=== PATIENT | male | born 1960 | race Caucasian/White ===

== ENCOUNTER 2022-02-26 10:53 | Inpatient (IN) | payer OTHER, SELFPAY ==
[2022-02-26] VITALS (23 sets, daily range): BP systolic 85–142; BP diastolic 49–96; PULSE 86–108; RESP 13–29; TEMP 36.6–37.2; O2SAT 94–100
--- NOTE | 2022-02-26 11:00 | RT.EKG_ITS ---
APPROVED REPORT Exam: Resting ECG Reason for Exam: anemia Patient Location: E HR:90 bpm ECG Measurements Heart Rate 90 AXIS SD 115 P 96 QRSd 79 QRS 43 QT 365 T 61 QTc 448 Conclusion Sinus rhythm...normal P axis, V-rate 60- 99
[2022-02-26 11:42] LABS: INR 1.1 (0.9-1.1); PTT Activated 23.9 sec (21.0-27.5); Prothrombin Time 10.6 sec (9.3-11.0)
--- NOTE | 2022-02-26 12:08 | ED.GENADUL_ITS ---
Discharge Plan Disposition Patient Disposition: [facility] INPATIENT Condition: Stable Discharge Details Chief Complaint: GenMedical Clinical Impression: Anemia, BRBPR (bright red blood per rectum) Admit Date/Time: 02/26/22 12:51 Admit Provider: Chan Espino Attending Provider: Chan Espino Primary Care Provider: Key Jerome ED Provider: Marilee Murphy Discharge Instructions Activity:: Activity as Tolerated Equipment/Supplies:: No Equipment Needed Diet:: soft diet today Discharge Orders Discharge Orders: Discharge Order (Routine); Ordered 02/27/22 Ordered By: Anayeli Goncalves Discharge Data Discharge Date/Time-TO BE ENTERED AT DEPARTURE: 02/26/22 13:39 Medical Decision Making Patient is a pleasant 61 year old male presenting today, accompanied by brother, with c/c of anemia. Patient has lung cancer, being treated by [facility] [place]ology team. He was here for routine blood work today as an outpatient prior to having his second dose of chemotherapy, last was completed on February 06. His hemoglobin was found to be 5.6. Patient reports that he had low hemoglobin historically but is never required a transfusion and that his hemoglobin was admitted for him to have his last chemotherapy without issue. Typically, patient received care as part of hospital or [facility]. He states that 2 days ago he had some bright red blood per rectum but describes the being outside of the stool and more anatomical on the paper. Reports he has had anal fissures historically and associated with this. He has not had any further bleeding since then. He denies denies any other bright red blood per rectum, melena, hematochezia, hematemesis, hematuria. Patient is not anticoagulated. He denies any fevers or chills. Denies any chest pain. States he has been having shortness of breath but states that this is been constant since his last dose of chemotherapy and is fine by exertion. No change in this. States that had has not had this lab abnormality he would not have sought care emergently today. On exam, patient appears generally unwell. He appears fatigued he is quite pale. Conjunctiva white. He has no petechial rash. No obvious bruising. No abnormalities in the oropharynx. Lungs are clear, normal cardiac exam. Abdomen is benign. He does have a positive guaiac test but no bright red blood per rectum, fissures or external evidence of bleeding. Labs from this morning further reviewed. Patient's WBC within normal range, normal ANC. Hemoglobin 5.6 with a hemoglobin of 15.8. MCV 106. Chemistry significant for creatinine of 1.4, I do not have a previous for patient comparison. Magnesium is low at 1.4, patient reports that he is often hypomagnesemic. Albumin is also slightly low at 3.0. We will replace the magnesium. Coags were added on by myself and within normal limits. Review of [facility] records show the patient on a 3-week chemotherapy regime including carboplatin and etoposide. This could be contributing to patient's significantly low anemia in conjunction with his GI bleed. 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 Patient I discussed risk/benefits and potential reaction of transfusion. Patient voiced understanding and agrees to have is completing. Blood transfusion checklists and consent was obtained. Will transfuse patient with 2 units of PRBCs. Patient's largest concern is staying on track with his chemotherapeutic regimen, he was scheduled to have chemotherapy this morning. Spoke with Dr. Correa with oncology. He was initially >10 for Hgb. He advised that his last colonocsopy showed some polyps 2-3years ago but that his more recent PET scan was questionable in the colon. Recommends admission and colonoscopy. Consulted with general surgery who agrees to admission following recommendations as outlined above. [facility] General Date/Time Provider Initiated Documentation: 02/26/22 11:01 . Limitations to Documentation: no limitations . Information obtained by: patient, family (brother) and RN notes reviewed . History of Present Illness 61 year old M presents to the emergency department with the chief complaint of anemic, BRBPR, Quality is described as other (pt denies any pain, reports fatigue, exertional SOB), Patient started experiencing this hour(s) (received recommendation to come to ED after lab draw in prep for treatment this AM) and it has been now resolved (had BRBPR 2 days ago, none since then, normal BM). No relieving factors improve symptom(s), Movement worsens symptoms (exertional fatigue, SOB) . Patient notes malaise and shortness of breath (reports this has been present since last chemo treatment); denies chest pain, cough, diaphoresis, fever/chills, headaches, nausea/vomiting, rash and syncope. Patient did receive the following treatments prior to arrival, none Related Data Home Medications Medication Instructions Recorded Confirmed albuterol sulfate 90 mcg/actuation 2 inh inhalation PRN PRN 02/26/22 03/01/22 aerosol inhaler atorvastatin 10 mg tablet 1 tab PO DAILY 02/26/22 03/01/22 escitalopram oxalate 10 mg tablet 10 mg PO DAILY 02/26/22 03/01/22 folic acid 1 mg tablet 1 tab PO DAILY 02/26/22 03/01/22 metoprolol succinate 25 mg 25 mg PO DAILY 02/26/22 03/01/22 tablet,extended release 24 hr prochlorperazine maleate 10 mg 1 tab PO Q60 MIN PRN PRN 02/26/22 03/01/22 tablet (Compazine) valsartan 80 mg tablet 1 tab PO DAILY 02/26/22 03/01/22 vitamin B complex 1 cap PO DAILY 02/26/22 03/01/22 pantoprazole 40 mg tablet,delayed 40 mg PO BID 03/01/22 release Allergies Allergy/AdvReac Type Severity Reaction Status Date / Time strawberry Allergy Intermediate Hives Unverified 03/01/22 11:17 General Stated Complaint: GenMedical TIMOTHY: 3 Review of Systems Constitutional Constitutional: Reports as per HPI, Denies chills, Denies fever(s) and Denies headache(s) Eyes Eyes: Denies change in vision ENT Ears, Nose, Mouth, and Throat: Denies dizziness and Denies headache(s) Cardiovascular Cardiovascular: Reports as per HPI Respiratory Respiratory: Reports as per HPI, Denies chest congestion, Denies cough, Denies pain on inspiration and Denies pain with cough Gastrointestinal Gastrointestinal: Reports as per HPI, Denies abdominal pain, Denies diarrhea, Denies nausea and Denies vomiting Genitourinary Genitourinary: Denies system reviewed and no additional complaints, except as documented (denies change in urinary habits) Musculoskeletal Musculoskeletal: Reports as per HPI and Denies back pain Integumentary/Breasts Skin/Breast: Reports as per HPI and Denies rash Neurologic Neurologic: Reports as per HPI, Denies dizziness and Denies headache(s) PFSH All Active Problems (Updated 03/12/22 @ 09:54 by FREDO Gray) BRBPR (bright red blood per rectum) (Acute) Tubular adenoma of colon (Acute) Gastritis (Acute) Small cell lung cancer (Acute) COPD (chronic obstructive pulmonary disease) (Chronic) Mitral regurgitation (Chronic) Anemia (Chronic) Medical History (Updated 03/12/22 @ 09:54 by FREDO Gray) Cholecystitis Diverticulosis Hyperlipemia Surgical History (Updated 03/06/22 @ 13:15 by Penelope Bridges RN) History of colonoscopy (~02/2022) Hx of cardiac catheterization S/P cr S/P colon resection Social History Smoking/Tobacco Use Status: Current every day Tobacco Type: cigars Smoking risk assessment performed?: Yes Drug use: Occasionally Substance use type: marijuana Do you feel safe at home: Yes Do you feel safe in your relationship?: Yes Exam Const General: cooperative, comfortable, no acute distress, well developed, frail appearing and ill appearing acutely (pale) Nutritional Appearance: average body habitus Orientation: alert, awake and oriented x3 HENMT Head: normal to inspection Eyes General: appearance normal, both eyes and all related structures (pale conjunctiva) Neck Neck: no lymphadenopathy and no meningeal signs Chest Chest: normal inspection of the chest, normal palpation of entire chest wall and no crepitus Resp Effort & Inspection: normal respiratory effort, able to speak in complete sentences and no respiratory distress Auscultation: clear to auscultation bilaterally, no rales, no rhonchi and no wheezes Cardio Rate: regular rate Rhythm: regular rhythm Heart Sounds: S1 normal and S2 normal GI Inspection: normal to inspection, no edema and non-distended Palpation: soft, not firm, no guarding, not rigid and nontender Auscultation: normal bowel sounds Rectal Exam: visual inspection normal, normal sphincter tone, prostate normal, heme positive stool and No hemorrhoids Back/Spine/Pelvis Back: no CVA tenderness Thoracic/Lumbar Spine: thoracic and lumbar spine normal to inspection Skin General skin exam: no rashes or lesions noted Trauma: no lacerations or abrasions Neuro General: patient alert, patient awake and patient oriented x3 Cognition: normal cognition Speech: speech normal Gait: normal gait Extrem General: normal to inspection, capillary refill normal, no pedal edema, no calf tenderness and normal gait Psych Appearance: grossly normal and well kempt Mental Status: mental status grossly normal Speech and Movement: speech and movement normal Course Vital Signs Vital signs: Vital Signs Temperature 36.7 C 02/26/22 11:03 Pulse 90 02/26/22 11:03 Respiratory Rate 15 02/26/22 11:03 Blood Pressure 125/52 L 02/26/22 11:03 Pulse Oximetry 100 02/26/22 11:03 Temperature 36.7 C 02/26/22 11:03 Pulse 98 H 02/26/22 12:01 Pulse 106 H 02/26/22 12:01 Respiratory Rate 23 02/26/22 12:01 Respiratory Effort 02/26/22 11:10 Respiratory Depth Normal 02/26/22 11:10 Respiratory Pattern Normal 02/26/22 11:10 Blood Pressure 85/63 L 02/26/22 12:01 Blood Pressure Mean 69 02/26/22 12:01 Blood Pressure Position Sitting 02/26/22 11:03 Pulse Oximetry 100 02/26/22 11:46 Oxygen Delivery Method Room Air 02/26/22 11:03 Oxygen Flow Rate 0 02/26/22 11:03 Pain Level 0 02/26/22 11:03 Lab/Test Results Lab/Test Results: Laboratory Tests Range/Units 02/26/22 02/26/22 11:21 11:21 PT (9.3-11.0) sec 10.6 INR (0.9-1.1) 1.1 APTT (21.0-27.5) sec 23.9 Patient ABO/Rh O Negative Antibody Screen NEGATIVE
[2022-02-26 13:02] LABS: Source Nasal/Nares
[2022-02-26 13:34] LABS: COVID-19 PCR Negative (Negative)
[2022-02-26] MEDS: Normal Saline Flush 10 ML SYR IVP ×3 (15:11→19:07)
--- NOTE | 2022-02-26 16:08 | NUR.NOTE ---
Nursing Note: This RN has reviewed the admission assessment performed and documented by Myra Mccabe LPN and is in agreement.
--- NOTE | 2022-02-26 20:44 | W.PM.HP.N ---
Date of service: 02/26/22 Time of Service: 15:15 Assessment and Plan Assessment and plan (1) Anemia: Status: Chronic Assessment and plan: The exact etiology of his anemia is a bit unclear. Regardless, he is symptomatic, and I think a hemoglobin of 5.6 warrants transfusion regardless of the etiology. He has been crossmatched for 2 units of packed cells, and I will repeat a CBC afterwards. He does have some macrocytosis on the CBC, suggesting the anemia may be related to his recent chemotherapy. I will check homocystine and MMA levels as well as thiamine and folate levels to help delineate that a bit further. I think if his hemoglobin remains appropriate over the next 24 to 48 hours, we might be able to get him discharged home and follow-up with a urgent outpatient EGD and colonoscopy. Certainly, if it is more convenient for him to undergo that prior to discharge that would be reasonable to. If hemoglobin fails to respond, then we will need to pursue more urgent endoscopy to delineate a clear source of bleeding. History of Present Illness History of Present Illness Chief Complaint: fatigue Narrative: Myles Dumont is a 61-year-old male who is currently being treated for small cell lung cancer. He was undergoing routine blood work as part of his chemotherapy and radiation when he was found to have hemoglobin of 5.6. He says he has been feeling quite tired, and has some mild exertional dyspnea, especially when going up steps. Otherwise, he is felt about his normal state of health. He admits to being quite rundown since the initiation of his chemotherapy and radiation, but over the past few days, he has not felt particularly ill. He denies any dyspepsia or dysphagia, or other systems consistent with peptic ulcer disease. Similarly, he says he has been having normal bowel function (for him) and he denies any reports of bloody bowel movements. When he was in the emergency department, he was found to be guaiac positive, but there was no evidence of gross blood on the rectal examination. Review of Systems Constitutional Constitutional: Reports fatigue, Reports lethargy, Reports weakness and Reports weight loss Eyes Eyes: Denies change in vision ENT Ears, Nose, Mouth, and Throat: Denies change in voice, Denies dysphagia and Reports dry mouth Cardiovascular Cardiovascular: Denies chest pain and Reports dyspnea on exertion Respiratory Respiratory: Reports dyspnea on exertion Gastrointestinal Gastrointestinal: Denies abdominal pain, Denies hematochezia, Denies change in bowel habits, Denies change in stool character, Denies dysphagia, Denies dyspepsia, Denies heartburn, Denies diarrhea, Denies nausea and Denies vomiting Musculoskeletal Musculoskeletal: Reports muscle weakness Neurologic Neurologic: Denies localized weakness, Denies paresthesias and Reports weakness Psychiatric Psychiatric: Reports depression Endocrine Endocrine: Reports fatigue Hematologic/Lymphatic Hematologic/Lymphatic: Denies easy bleeding and Denies easy bruising PFSH All Active Problems (Updated 02/26/22 @ 21:04 by Chan Espino MD) Mitral regurgitation (Chronic) COPD (chronic obstructive pulmonary disease) (Chronic) Anemia (Chronic) Small cell lung cancer (Acute) Medical History (Updated 02/26/22 @ 21:04 by Chan Espino MD) Cholecystitis Diverticulosis Hyperlipemia Surgical History (Updated 02/26/22 @ 21:04 by Chan Espino MD) S/P cr S/P colon resection Social History Smoking/Tobacco Use Status: Current every day Tobacco Type: cigars Smoking risk assessment performed?: Yes Drug use: Occasionally Substance use type: marijuana Do you feel safe at home: Yes Do you feel safe in your relationship?: Yes Meds Allergies and Home Medications Allergies Allergy/AdvReac Type Severity Reaction Status Date / Time strawberry Allergy Intermediate Hives Unverified 02/26/22 14:37 Home Medications Medication Instructions Recorded Confirmed Type albuterol sulfate 90 mcg/actuation 2 inh inhalation PRN PRN 02/26/22 02/26/22 History aerosol inhaler atorvastatin 10 mg tablet 1 tab PO DAILY 02/26/22 02/26/22 History escitalopram oxalate 10 mg tablet 10 mg PO DAILY 02/26/22 02/26/22 History famotidine 40 mg tablet 20 mg PO DAILY 02/26/22 02/26/22 History folic acid 1 mg tablet 1 tab PO DAILY 02/26/22 02/26/22 History metoprolol succinate 25 mg 25 mg PO DAILY 02/26/22 02/26/22 History tablet,extended release 24 hr prochlorperazine maleate 10 mg 1 tab PO Q60 MIN PRN PRN 02/26/22 02/26/22 History tablet valsartan 80 mg tablet 1 tab PO DAILY 02/26/22 02/26/22 History vitamin B complex 1 cap PO DAILY 02/26/22 02/26/22 History Exam Const General: cooperative and ill appearing Orientation: alert, awake and oriented x3 HENMT Head: normal to inspection Ears: hearing grossly normal bilaterally Mouth: mucous membranes dry Eyes Conjunctivae: other (pale) Pupils: PERRL Neck Neck: normal visual inspection and full ROM Thyroid: thyroid normal Lymphatic: no lymphadenopathy noted Resp Effort & Inspection: normal respiratory effort Auscultation: wheezes Cardio Jugular venous pressure: no JVD Rate: regular rate Heart Sounds: normal, physiologic split S2 and murmur GI Inspection: normal to inspection and non-distended Palpation: soft, no guarding and nontender Auscultation: normal bowel sounds Skin General skin exam: turgor decreased Other: Skin is pale Neuro General: patient alert, patient awake and patient oriented x3 Cognition: normal cognition Speech: speech normal Extrem Right upper extremity: full ROM Psych Appearance: well kempt Mood: congruent mood Attitude: cooperative Results Labs Labs: Laboratory Results - last 24 hr 02/26/22 02/26/22 02/26/22 11:21 11:21 12:12 PT 10.6 INR 1.1 APTT 23.9 COVID-19 Source Nasal/Nares SARS-CoV-2 (PCR) Negative Patient ABO/Rh O Negative Antibody Screen NEGATIVE Crossmatch See Detail Last Vital Signs Temp 99.0 F 02/26/22 19:22 Pulse 96 H 02/26/22 19:22 Resp 18 02/26/22 19:22 BP 113/66 02/26/22 19:22 Pulse Ox 97 02/26/22 19:22 PAWSS Have you Been Recently Intoxicated or Drunk Within the Last 30 days?: No Have you Ever Experienced Previous Episodes of Alcohol Withdrawal?: No Have you ever Experienced Withdrawal Seizures?: No Have you ever Experienced Delirium Tremens(DT)s?: No Have you ever undergone Alcohol Rehabilitation Treatment (i.e, inpt ot outpatient treatment programs)?: Yes Have you ever Experienced Blackouts?: No Have you ever Combined Alcohol with other Downers within the last 90 days?: No Have you ever Combined Alcohol with any other Substance of Abuse during the last 90 days?: Yes Positive Blood Alcohol level on Presentation? [PCS.BAL]: No Evidence of Increased Autonomic Activity (i.e. HR>120, tremor, sweating, agitation, nausea)?: No Result: 3
[2022-02-26 22:40] LABS: Vitamin B12 471 pg/mL (193-986)
[2022-02-26 22:47] LABS: Folate > 20.0 ng/mL (8.6-20.0)
[2022-02-27 03:16] VITALS: BP 138/82; PULSE 94; RESP 16; TEMP 36.6; O2SAT 97
[2022-02-27 06:05] LABS: HCT 21.5 % (40.0-50.0); HGB 7.6 g/dL (13.5-17.5); MCH 33.8 pg (27.0-33.0); MCHC 35.3 % (32.0-36.0); MCV 96 fL (80-95); Platelet Count 166 10^3/uL (130-400); RBC 2.25 10^6/uL (4.36-5.78); RDW 17.2 % (11.8-14.1); RDW-SD 59.7 fL; WBC 4.42 10^3/uL (4.4-10.8)
[2022-02-27 07:11] VITALS: BP 137/77; PULSE 83; RESP 16; TEMP 36.6; O2SAT 98
--- NOTE | 2022-02-27 07:27 | W.PM.PROGNOT ---
Date of Service Date of service: 02/27/22 Time of Service: 07:27 Assessment and Plan Assessment and plan (1) Anemia: Status: Chronic Assessment and plan: His anemia is most likely multifactorial. He should have an EGD and colonoscopy because his stools were guaiac positive. I did discuss with the patient prepping him today and then doing the procedure tomorrow. At this point he would like to be discharged and prep at home. I will recheck a hemoglobin around 11. Depending on the results I will discuss with him urgent outpatient procedures versus staying and having the procedures done tomorrow. Subjective Subjective Interval history since last seen: Mr. Dumont is feeling better this morning after 2 units of blood. He has not noted any bright red blood per rectum or melena. His stool was heme positive. His folate was normal. He is eating without pain. He has no nausea or vomiting. He has been afebrile overnight and vitals are stable. Exam Const General: comfortable and no acute distress HENSD Head: normocephalic and atraumatic Resp Effort & Inspection: normal respiratory effort Auscultation: clear to auscultation bilaterally Cardio Rate: regular rate Rhythm: regular rhythm GI Palpation: soft, no hepatosplenomegaly and nontender Objective Last Vital Signs Temp 97.9 F 02/27/22 07:11 Pulse 83 02/27/22 07:11 Resp 16 02/27/22 07:11 BP 137/77 02/27/22 07:11 Pulse Ox 98 02/27/22 07:11 Laboratory Results - last 24 hr 02/26/22 02/26/22 02/26/22 11:21 11:21 12:12 WBC RBC Hgb Hct MCV MCH MCHC RDW Plt Count MPV PT 10.6 INR 1.1 APTT 23.9 Vitamin B12 Folate COVID-19 Source Nasal/Nares SARS-CoV-2 (PCR) Negative Patient ABO/Rh O Negative Antibody Screen NEGATIVE Crossmatch See Detail 02/26/22 02/26/22 02/27/22 20:12 20:12 05:52 WBC 4.42 RBC 2.25 L Hgb 7.6 L D Hct 21.5 L MCV 96 H D MCH 33.8 H MCHC 35.3 RDW 17.2 H Plt Count 166 MPV 9.0 PT INR APTT Vitamin B12 471 Folate > 20.0 H COVID-19 Source SARS-CoV-2 (PCR) Patient ABO/Rh Antibody Screen Crossmatch PAWSS Have you Been Recently Intoxicated or Drunk Within the Last 30 days?: No Have you Ever Experienced Previous Episodes of Alcohol Withdrawal?: No Have you ever Experienced Withdrawal Seizures?: No Have you ever Experienced Delirium Tremens(DT)s?: No Have you ever undergone Alcohol Rehabilitation Treatment (i.e, inpt ot outpatient treatment programs)?: Yes Have you ever Experienced Blackouts?: No Have you ever Combined Alcohol with other Downers within the last 90 days?: No Have you ever Combined Alcohol with any other Substance of Abuse during the last 90 days?: Yes Positive Blood Alcohol level on Presentation? [PCS.BAL]: No Evidence of Increased Autonomic Activity (i.e. HR>120, tremor, sweating, agitation, nausea)?: No Result: 3
[2022-02-27 09:06] VITALS: BP 149/81; PULSE 88; O2SAT 99
[2022-02-27] MEDS: Metoprolol CR 25 MG TABCR PO (09:07)
[2022-02-27] MEDS: Escitalopram 10 MG TAB PO (09:07)
[2022-02-27] MEDS: Folic Acid 1 MG TAB PO (09:07)
[2022-02-27] MEDS: Valsartan 80 MG TAB PO (09:07)
[2022-02-27] MEDS: Famotidine 20 MG TAB PO (09:07)
[2022-02-27] MEDS: Atorvastatin 10 MG TAB PO (09:07)
[2022-02-27] MEDS: Vitamins B Comp w/C TAB 1 TAB PO (09:07)
[2022-02-27 11:17] LABS: HCT 22.2 % (40.0-50.0); HGB 8.1 g/dL (13.5-17.5)
--- NOTE | 2022-02-27 12:18 | DSE_ITS ---
Date of service: 02/27/22 Time of Service: 12:18 DS: Diagnosis Discharge Diagnosis (1) Anemia: Status: Chronic Discharge Plan Disposition Patient Disposition: HOME Condition: Stable Discharge Details Reason For Visit: Anemia, GI Bleed Admit Date/Time: 02/26/22 12:51 Admit Provider: Chan Espino Attending Provider: Chan Espino Primary Care Provider: Key Jerome Hospital Course Hospital Course: Mr. Dumont is a 61-year-old gentleman who is currently undergoing chemotherapy for lung cancer. He was seen in the emergency department yesterday with anemia. This looks to be acute on chronic. He was guaiac positive in the ER but then guaiac negative today. The patient himself has not noted any bright red blood or melena. Most likely this is a multifactorial anemia. After 2 units of blood his hemoglobin came up appropriately. A follow-up hemoglobin was stable. Patient wished to be discharged and have an outpatient EGD and colonoscopy. I was able to add him to Dr. Espino's schedule for . The patient will come over to the office after discharge today so we can go over the paperwork. He will prep tomorrow and then have his colonoscopy on . Home Meds and New Rx's Prescriptions: Continued metoprolol succinate 25 mg tablet extended release 24 hr 25 mg PO DAILY Label Comments: TAKE 1 TABLET BY MOUTH ONCE DAILY IN THE EVENING FOR 90 DAYS atorvastatin 10 mg tablet 1 tab PO DAILY Label Comments: TAKE 1 TABLET BY MOUTH ONCE DAILY FOR 90 DAYS famotidine 40 mg tablet 20 mg PO DAILY valsartan 80 mg tablet 1 tab PO DAILY prochlorperazine maleate 10 mg tablet 1 tab PO Q60 MIN PRN PRN folic acid 1 mg tablet 1 tab PO DAILY albuterol sulfate 90 mcg/actuation HFA aerosol inhaler 2 inh INHALATION PRN PRN vitamin B complex Capsule 1 cap PO DAILY Label Comments: TAKE 1 CAPSULE BY MOUTH ONCE DAILY WITH MEALS escitalopram oxalate 10 mg Tablet 10 mg PO DAILY Discharge Instructions Additional Instructions: Please come to our office across the street in the [facility] building today after discharge so we can go over the prep for your colonoscopy and upper endoscopy. The medication has been prescribed and it should be at your pharmacy to [facility]. Activity:: Activity as Tolerated Equipment/Supplies:: No Equipment Needed Diet:: soft diet today Discharge Orders Discharge Orders: Discharge Order (Routine); Ordered 02/27/22 Ordered By: Anayeli Goncalves DS: Summary Time Spent with Patient providing and/or coordinating discharge services: Less than 30 minutes Status at Discharge Functional status at discharge: independent ambulation Overall status at discharge: patient is back to baseline Mental Status: mental status grossly normal Speech and Movement: speech and movement normal Mood: congruent mood Affect: normal affect Exam Psych Mental Status: mental status grossly normal Speech and Movement: speech and movement normal Mood: congruent mood Affect: normal affect DS: Data Vitals/I&O Vitals and I&O: Vital Signs Temperature 97.9 F 02/27/22 07:11 Temperature Source Tympanic 02/27/22 07:11 Pulse 88 02/27/22 09:06 Pulse Rhythm Regular 02/27/22 09:30 Pulse 106 H 02/26/22 12:01 Respiratory Rate 16 02/27/22 07:11 Respiratory Effort Non-Labored 02/27/22 09:30 Respiratory Depth Normal 02/27/22 09:30 Respiratory Pattern Normal 02/27/22 09:30 Blood Pressure 149/81 H 02/27/22 09:06 Blood Pressure Mean 69 02/26/22 12:01 Blood Pressure Position Sitting 02/26/22 11:03 Pulse Oximetry 99 02/27/22 09:06 Oxygen Delivery Method Room Air 02/27/22 09:06 Oxygen Flow Rate 0 02/27/22 09:06 Pain Level 0 02/27/22 03:16 Comment 02/26/22 19:22 Intake & Output 02/26/22 02/27/22 02/27/22 23:59 11:59 23:59 Intake Total 1321 / 1321 Output Total 750 / 750 1000 / 1400 400 / 1400 Balance 571 / 571 -1000 / -1400 -400 / -1400 Weight 162 lb Intake: IV 40 / 40 Oral 550 / 550 Blood Product 665 / 665 Rbc Leuko Reduced Unit 350 / 350 [id number] Rbc Leuko Reduced Unit 315 / 315 [id number] Other 66 / 66 Rbc Leuko Reduced Unit 21 / 21 [id number] Rbc Leuko Reduced Unit 45 / 45 [id number] Output: Urine 750 / 750 1000 / 1400 400 / 1400 Other: Urine Color Yellow Yellow Yellow Urine Appearance Clear Clear Urine Odor Normal None Strong Comment Void x1 in the toilet. Stool Occult Blood Negative Stool Size Large Stool Characteristics Liquid Voiding Methods Toilet Toilet Data Completed and Pending Labs on day of discharge: Labs from last 24 hours 02/27/22 02/27/22 02/26/22 11:09 05:52 20:12 WBC 4.42 RBC 2.25 L Hgb 8.1 L 7.6 L D Hct 22.2 L 21.5 L MCV 96 H D MCH 33.8 H MCHC 35.3 RDW 17.2 H Plt Count 166 MPV 9.0 Vitamin B12 Methylmalonic Acid Pending Folate Homocysteine Pending COVID-19 Source SARS-CoV-2 (PCR) Patient ABO/Rh Antibody Screen Crossmatch 02/26/22 02/26/22 02/26/22 20:12 20:12 12:12 WBC RBC Hgb Hct MCV MCH MCHC RDW Plt Count MPV Vitamin B12 471 Methylmalonic Acid Folate > 20.0 H Homocysteine COVID-19 Source Nasal/Nares SARS-CoV-2 (PCR) Negative Patient ABO/Rh Antibody Screen Crossmatch 02/26/22 11:21 WBC RBC Hgb Hct MCV MCH MCHC RDW Plt Count MPV Vitamin B12 Methylmalonic Acid Folate Homocysteine COVID-19 Source SARS-CoV-2 (PCR) Patient ABO/Rh O Negative Antibody Screen NEGATIVE Crossmatch See Detail PFSH All Active Problems Mitral regurgitation (Chronic) COPD (chronic obstructive pulmonary disease) (Chronic) Anemia (Chronic) Small cell lung cancer (Acute) Medical History Cholecystitis Diverticulosis Hyperlipemia Surgical History S/P cr S/P colon resection Social History Smoking/Tobacco Use Status: Current every day Tobacco Type: cigars Smoking risk assessment performed?: Yes Drug use: Occasionally Substance use type: marijuana Do you feel safe at home: Yes Do you feel safe in your relationship?: Yes
[2022-02-27] MEDS: Normal Saline Flush 10 ML SYR IVP (13:22)
[2022-02-27] MEDS: Heparin 500 UNITS/5 ML SYRINGE IVP (13:23)
[2022-02-28 09:42] LABS: Homocysteine 18.6 umol/L (5.0-13.9)
[2022-03-05 09:04] LABS: Methylmalonic Acid 0.35 nmol/mL (<=0.40)
== END 2022-02-27 13:30 | disposition home or self-care (01) | DRG 812 ==
LOC: ER 11:43 → MS 13:46
PROVIDERS: Surgery; Admitting Provider Surgery; Emergency Provider Physician Assistant; PCP Internal Medicine; Visit Provider Surgery
DX: D64.9 Anemia, unspecified (principal); C34.11 Malignant neoplasm of upper lobe, right bronchus or lung; E83.42 Hypomagnesemia; F17.290 Nicotine dependence, other tobacco product, uncomplicated; F12.90 Cannabis use, unspecified, uncomplicated; I34.0 Nonrheumatic mitral (valve) insufficiency; J44.9 Chronic obstructive pulmonary disease, unspecified; R19.5 Other fecal abnormalities
CPT/HCPCS: 36415; 80186; 83090; 85027; 86850; 86900; 86901; 86920; 87635; 93005; 99285; 82607; 82746; 85014; 85018; 85610; 85730; 93010; P9016

== ENCOUNTER 2022-03-01 10:50 | Day surgery (SDC) | payer OTHER, SELFPAY ==
[2022-03-01 11:06] VITALS: BP 111/65; PULSE 90; RESP 17; TEMP 36.7; O2SAT 99
[2022-03-01] MEDS: Lactated Ringers 1,000 ML 80 ML IV (11:32)
--- NOTE | 2022-03-01 11:32 | W.ANESPRE ---
General Info Date of Service Date Performed: 03/01/22 Height: 5 ft 8 in Weight: 69 kg Body Mass Index (BMI): 23.1 Surgical Procedure: Operation Date: 03/01/22 13:05 Proposed Procedure Side Surgeon p Colonoscopy/Gastroscopy Chan Espino MD Meds Allergies and Home Medications Allergies Allergy/AdvReac Type Severity Reaction Status Date / Time strawberry Allergy Intermediate Hives Unverified 03/01/22 11:17 Home Medication Medication Instructions Recorded albuterol sulfate 90 mcg/actuation 2 inh inhalation PRN PRN 02/26/22 aerosol inhaler atorvastatin 10 mg tablet 1 tab PO DAILY 02/26/22 escitalopram oxalate 10 mg tablet 10 mg PO DAILY 02/26/22 famotidine 40 mg tablet 20 mg PO DAILY 02/26/22 folic acid 1 mg tablet 1 tab PO DAILY 02/26/22 metoprolol succinate 25 mg 25 mg PO DAILY 02/26/22 tablet,extended release 24 hr prochlorperazine maleate 10 mg 1 tab PO Q60 MIN PRN PRN 02/26/22 tablet (Compazine) valsartan 80 mg tablet 1 tab PO DAILY 02/26/22 vitamin B complex 1 cap PO DAILY 02/26/22 Current Visit Medications: Current Medications Generic Name Dose Route Start Last Admin Trade Name Freq PRN Reason Stop Dose Admin Ringer's Solution 1,000 mls @ 80 mls/hr 03/01/22 06:00 IV 03/30/22 23:59 INFUSION JEMIMA IV Miscellaneous Supplies 1 each 03/01/22 06:00 Iv Access IV 03/30/22 23:59 DIRECTED JEMIMA Sodium Chloride 0 ml 03/01/22 06:00 Normal Saline Flush 10 Ml Syr IV 03/30/22 23:59 PRN PRN Sodium Chloride 0 ml 03/01/22 06:00 Normal Saline 10 Ml Vial IJ 03/30/22 23:59 DIRECTED PRN Sterile Water 0 ml 03/01/22 06:00 Water,Injection,Sterile 10 Ml Vial IJ 03/30/22 23:59 DIRECTED PRN PFSH Active Problems Active Problems: Problem Status Onset Code Small cell lung cancer C34.90 COPD (chronic obstructive pulmonary disease) J44.9 Mitral regurgitation I34.0 Anemia D64.9 Medical History Medical History Cholecystitis Diverticulosis Hyperlipemia Surgical History Surgical History Hx of cardiac catheterization S/P cr S/P colon resection Tobacco Smoking/Tobacco Use Status: Current every day Tobacco Type: cigars Substance Use Substance use: Occasionally Substance use type: marijuana Vital Signs and Lab Results Vital Signs Most Recent Vital Signs in EMR: Most Recent Vital Signs Temp Pulse Resp BP Pulse Ox 36.7 C 90 17 111/65 99 03/01/22 11:06 03/01/22 11:06 03/01/22 11:06 03/01/22 11:06 03/01/22 11:06 Lab Results Blood Type / Crossmatch: Patient ABO/Rh O Negative 02/26/22 Antibody Screen NEGATIVE 02/26/22 Crossmatch See Detail 02/26/22 Complete Blood Count: White Blood Count 4.42 10^3/uL (4.4-10.8) 02/27/22 05:52 Red Blood Count 2.25 10^6/uL (4.36-5.78) L 02/27/22 05:52 Hemoglobin 8.1 g/dL (13.5-17.5) L 02/27/22 11:09 Hematocrit 22.2 % (40.0-50.0) L 02/27/22 11:09 Platelet Count 166 10^3/uL (130-400) 02/27/22 05:52 Complete Metabolic Panel: Sodium Level 137 mmol/L (136-145) 02/26/22 08:33 Potassium Level 5.1 mmol/L (3.5-5.1) 02/26/22 08:33 Chloride Level 103 mmol/L (98-107) 02/26/22 08:33 Carbon Dioxide Level 24.9 mmol/L (21.0-32.0) 02/26/22 08:33 Blood Urea Nitrogen 8 mg/dL (7-18) 02/26/22 08:33 Creatinine 1.4 mg/dL (0.70-1.30) H 02/26/22 08:33 Estimated GFR/1.73 m2 51.52 (mL/min/1.73m2) 02/26/22 08:33 Magnesium Level 1.4 mg/dL (1.8-2.4) L 02/26/22 08:33 Calcium Level 8.3 mg/dL (8.5-10.1) L 02/26/22 08:33 Albumin 3.0 g/dL (3.4-5.0) L 02/26/22 08:33 Glucose Level 104 mg/dL (74-106) 02/26/22 08:33 Liver Function Panel: Alanine Aminotransferase (ALT/SGPT) 21 U/L (16-63) 02/26/22 08:33 Aspartate Amino Transf (AST/SGOT) 17 U/L (15-37) 02/26/22 08:33 Coagulation Panel: INR International Normalized Ratio 1.1 (0.9-1.1) 02/26/22 11:21 Prothrombin Time 10.6 sec (9.3-11.0) 02/26/22 11:21 Activated Partial Thromboplast Time 23.9 sec (21.0-27.5) 02/26/22 11:21 Cardiac Panel: No Data to Display Arterial Blood Gas: No Data to Display Venous Blood Gas: No Data to Display Pancreas Panel: No Data to Display Thyroid Panel: No Data to Display Infectious Disease: Coronavirus (COVID-19)(PCR) Negative (Negative) 02/26/22 12:12 Coronavirus 2019 Source Nasal/Nares 02/26/22 12:12 Blood Cultures: No Data to Display Toxicology Panel: No Data to Display Imaging and Studies Imaging and Studies Study information below may be from another EMR and interpreted by another provider. Please see original notes in EMR for more complete details. EKG Summary: Conclusion Sinus rhythm...normal P axis, V-rate 60- 99 02/26/22 Echocardiogram Summary: 01/12/22 EF 70%, mild to moderate MR No other valve issues. Anesthesia Assessment and Plan Anesthesia History Personal History: No History of Anesthesia Complications Family History: No Family History of Anesthesia Complications Exercise Tolerance Exercise Tolerance: Metabolic Equivalents>4 Pertinent Negatives Pertinent Negatives: No Major Pulmonary Symptoms or Complaints (Lung CA, one treatment then anemia noted, patient admitted amd transfused 2 units PRBCs), No History of CVA/TIA and Other (Occ left sided chest discomfort worked up in January, per patient It was my gallbladder) Cardiac & Pulmonary Exam Cardiac Exam: Normal S1/S2 Heart Sounds Pulmonary Exam: Clear Bilateral Breath Sounds Implantable Cardiac Device Does patient have a Pacemaker or an ICD?: No Airway Exam Known Difficult Airway: No Mallampati Class: 2 Mouth Opening: Normal (> 3cm) Thyromental Distance: Greater than 3 cm Neck Range of Motion: Full ROM Neck Circumference: Normal Teeth Condition: Removable Dentures/Plates Upper, Removable Dentures/Plates Lower and Edentulous ASA Classification ASA Score: ASA 3 Emergency Case?: No NPO Status NPO Status: NPO Clears >2 hours, Solids >8 hours and NPO Clear Liquids>2 hours Anesthesia Plan Resuscitation Status: Full Code Anesthesia Technique: General Anesthesia Airway Planned: Natural Airway Monitors Used: Standard Monitors
[2022-03-01 11:33] VITALS: BMI 23.1
--- NOTE | 2022-03-01 12:04 | PDOC.DSDIS_ITS ---
Discharge Plan Disposition Patient Disposition: HOME Condition: Good Discharge Details Reason For Visit: anemia Attending Provider: Chan Espino Primary Care Provider: Key Jerome Home Meds and New Rx's Prescriptions: New pantoprazole [Protonix] [address] for susp in packet 40 mg PO BID MDD 2 Qty: 60 1RF Rx Instructions: take one dose by mouth in the morning and one dose by mouth in the evening for one month Continued metoprolol succinate 25 mg tablet extended release 24 hr 25 mg PO DAILY Label Comments: TAKE 1 TABLET BY MOUTH ONCE DAILY IN THE EVENING FOR 90 DAYS atorvastatin 10 mg tablet 1 tab PO DAILY Label Comments: TAKE 1 TABLET BY MOUTH ONCE DAILY FOR 90 DAYS valsartan 80 mg tablet 1 tab PO DAILY prochlorperazine maleate [Compazine] 10 mg tablet 1 tab PO Q60 MIN PRN PRN folic acid 1 mg tablet 1 tab PO DAILY albuterol sulfate 90 mcg/actuation HFA aerosol inhaler 2 inh INHALATION PRN PRN vitamin B complex Capsule 1 cap PO DAILY Label Comments: TAKE 1 CAPSULE BY MOUTH ONCE DAILY WITH MEALS escitalopram oxalate 10 mg Tablet 10 mg PO DAILY Discontinued famotidine 40 mg tablet 20 mg PO DAILY Discharge Instructions Instructions: Colonoscopy (DC), Upper Endoscopy (DC) Additional Instructions: 1. If tolerated, consume a soft, low fiber diet for 1-2 days. [address] Do not drive, drink alcohol, operate machinery, make critical decisions, or do activities that require coordination or balance for 24 hours. 3. Because air was put into your colon during the procedure, expelling air from your rectum (passing gas or farting) is normal. 4. You may not have a bowel movement for 1-3 days because of the colonoscopy prep. This is normal. 5. You may experience a sore throat for 24 to 48 hours. You may use throat lozenges or gargle with warm salt water to relieve the discomfort. 6. Because air was put into your stomach during the procedure, you may experience some belching. 7. Go directly to the emergency room if you notice any of the following: Develop chills (warm to touch), or if you have a thermometer and your temperature is above 101 Difficulty breathing or difficultly swallowing Persistent vomiting Severe abdominal pain, other than gas cramps Severe chest pain Black, tarry stools Any bleeding ? exceeding one tablespoon 8. Call your physician if the site where your intravenous was started becomes red, swollen, painful, and warm to touch. 9. Your physician has reviewed your pre-procedure medications. Please continue to take those medications as previously ordered. You will be given specific information/education regarding any changes to your medications before leaving. Referrals: Key Jerome [Primary Care Provider] - Chan Espino MD [ [facility] STAFF PHYSICIAN] - Activity:: Activity as Tolerated Diet:: As Tolerated Discharge Orders Discharge Orders: Discharge Order (Routine); Ordered 03/01/22 Ordered By: Chan Espino DS: Diagnosis Discharge Diagnosis (1) Gastritis: Status: Acute Asessment and Plan: start proton pump inhibitor
--- NOTE | 2022-03-01 12:10 | COLE_ITS ---
Colonoscopy Report Date of procedure: 03/01/22 Pre-op diagnosis general: anemia Procedure: esophagogastrectomy and colonoscopy Surgeon: Chan Espino Anesthesia Type: General:No Airway Estimated blood loss (mL): 20 Pathology: other (Duodenal biopsy, stomach biopsies of antrum and body) Complications: None Disposition: same day Indications: Myles is a 61-year-old male who is being treated for small cell lung cancer. He was recently undergoing routine blood work anticipating his next round of jeancarlos motherapy and radiation therapy. He was found to be anemic with hemoglobin around 5.6. In retrospect, he did have some fatigue and decreased exercise tolerance, and maybe some shortness of breath especially with walking up steps. He was admitted to the hospital and transfused packed red blood cells. He had no evidence of active ongoing gastrointestinal hemorrhage, and his hemoglobin responded favorably. He was discharged home, returns today for diagnostic EGD and colonoscopy to rule out gastrointestinal bleeding as a source of his anemia. Prep: Miralax/Dulcolax Procedure Start Time: 12:23 Procedure End Time: 12:59 Retraction Time: 29 Findings: Diffuse gastritis and duodenitis Rectal polyps at 25 cm and 20 cm Procedure Description: After the initiation of monitored anesthetic care, and with the assistance of a bite block, I advanced a standard gastroscope through the mouth past the hypopharynx and into the esophagus.? Under the direct vision of the scope, I advanced down the esophagus into the stomach.? Once I entered the stomach, I performed a brief inspection, there was some obvious thin sanguinous secretions throughout the body of the stomach.? The underlying mucosa of the body, and slightly less of the antrum, appeared erythematous and a bit friable..? After that, I gently advanced the scope around the incisura angularis and examined the pylorus.? This also appeared normal.? Next, I advanced the scope through the pylorus into the duodenum.? The mucosa was a bit pale. There were some pale- colored plaques. There were no ulcers. There was no blood.? I was able to visualize bile draining into the duodenum through the ampulla Vater. ?I did not see any evidence of a focal source of bleeding through the third portion of the duodenum. I did perform biopsies of the second portion of the duodenum adjacent to the plaque. Next, I began retracting the endoscope.? Again, I returned to the stomach which was carefully examined once again.? It all appeared consistent with diffuse gastritis. The cardia and GE junction appeared less affected. I did not see any focal ulceration. I did perform random biopsies of the antrum and body. I then gently desufflated some of the stomach, and withdrew the endoscope into the distal esophagus. Z-line was normal-appearing at 40 cm. ?Finally, I withdrew the scope along the length of the esophagus taking great care to examine the entirety of the mucosa.? I did not appreciate any abnormalities. We then moved Mr. Dumont into the left lateral decubitus position. I performed an external anorectal exam.? Perineum and skin were normal, as was the anal verge.? There was no evidence of external hemorrhoids.? Next, I performed a digital rectal exam.? I did appreciate any abnormal findings.? Next, I advanced a colonoscope into the rectal vault.? I performed retroflexion.? I did not see signs of pathologic internal hemorrhoids.? Using insufflation, I then advanced the colonoscope beyond the rectal folds and into the sigmoid colon before advancing towards the cecum.? I noticed the staple line from the previous colectomy site in the area of the expected sigmoid colon. Additionally, there was a single diverticula proximal to the staple line that appeared not pathologic. There were no stigmata of bleeding here. The quality of the prep was adequate.? The scope was noted to be in the cecum by identification of the ileocecal valve and appendiceal orifice. Because of his previous PET scan with abnormal uptake in the cecum, I performed diligent examination of the cecum and ascending colon. I did not see any mucosal abnormalities here. I then began withdrawing the colonoscope using repeated irrigation as necessary for full evaluation of the colonic mucosa. ?Once the scope was withdrawn to the level of the rectum, great care was taken to examine portions of the rectal folds. Around 25 cm cm from the anal verge I identified a 0.75 cm polyp. ?It appeared flat in character. ?I was able to remove this with a cold biopsy forcep. ?I examined the site, and there was minimal bleeding. Around 20 cm from the anal verge I identified another small polyp, less than 1 cm. ?It appeared flat in character. ?I was able to remove this with a cold biopsy forceps in 2 bites. ?I examined the site, and there was minimal bleeding. ?Once this was completed, I continued to withdraw the scope and examine the remainder of the colonic mucosa. Once this was completed, I continued to withdraw the scope and examine the remainder of the colonic mucosa. Finally, the scope was withdrawn and the patient was brought to the same-day surgery recovery unit as the anesthetic wore off. ?The findings and instructions were shared with the patient prior to discharge.
--- NOTE | 2022-03-01 12:27 | STOM_PTH ---
PATIENT: Myles Dumont LOC: [facility] U#:[id number] AGE/SX: 61/M ROOM: RE03/01/[address]: Chan Espino MD : [id number] BED: DIS: 03/01/2022 SPEC #: [id number] RECD: 03/01/22 16:55 STATUS: JOSEPH RE #: [id number] CESARIO: 03/01/22 12:[address]: Chan Espino DEPT: Surgical Specimen RECD BY: Alma Barajas ENTERED: 03/01/22 16:57 SP TYPE: STOMACH OTHR DR: Key Jerome Tissues: 1 - BIOPSY BOWEL 2 - STOMACH BIOPSY 3 - STOMACH BIOPSY 4 - BIOPSY BOWEL 5 - BIOPSY BOWEL Procedures: GROSS AND MICRO LEVEL 4 Comments: [id number]
[2022-03-01 13:03] VITALS: BP 97/55; PULSE 103; RESP 16; TEMP 36.4; O2SAT 100
[2022-03-01 13:25] VITALS: BP 135/78; PULSE 86; RESP 18; TEMP 36.5; O2SAT 98
--- NOTE | 2022-03-01 15:17 | W.ANESPOSTOP ---
Postoperative Evaluation Date, Time and Location Date Performed: 03/01/22 Time Performed: 13:30 Patient Location: Day Surgery Unit Vital Signs Most Recent Imported Vital Signs: Most Recent Vital Signs Temp Pulse Resp BP Pulse Ox 36.5 C 86 18 135/78 98 03/01/22 13:25 03/01/22 13:25 03/01/22 13:25 03/01/22 13:25 03/01/22 13:25 Pain Score Most Recent Pain Score: Most Recent Pain Score Pain Level 0 03/01/22 13:25 Assessment Mental Status: Awake (Alert & Oriented to Patient Baseline) Airway and Respiratory Function: Patent airway with normal (patient baseline) respiratory exam Cardiovascular Function: Hemodynamically Stable Hydration Status: Adequately Hydrated Nausea & Vomiting: No Nausea or Vomiting Pain: Pt. Denies Any Pain Peripheral Nerve Block: Patient did not receive a nerve block
== END 2022-03-01 13:50 | disposition home or self-care (01) ==
PROVIDERS: PCP Internal Medicine; Visit Provider Surgery
PROC: (CPT 45380; principal; 2022-03-01 13:00)
DX: D64.9 Anemia, unspecified (principal); K29.70 Gastritis, unspecified, without bleeding; J44.9 Chronic obstructive pulmonary disease, unspecified; C34.90 Malignant neoplasm of unspecified part of unspecified bronchus or lung; F17.290 Nicotine dependence, other tobacco product, uncomplicated
CPT/HCPCS: 45380; 43239; 88305

== ENCOUNTER 2022-03-14 02:19 | Outpatient (RCR) | payer OTHER, SELFPAY ==
[2022-02-26] MEDS: Normal Saline Flush 10 ML SYR IVP (08:38)
[2022-02-26 08:52] LABS: Absolute Lymphocyte Count 1.63 10^3/uL (1.2-3.4); Absolute Monocyte Count 1.06 10^3/uL (0.1-0.8); Absolute Neutrophil Count 3.55 10^3/uL (1.2-6.7); Immature Grans % 1.6; Lymphocytes % 25.7; MCH 37.6 pg (27.0-33.0); MCHC 35.4 % (32.0-36.0); MCV 106 fL (80-95); MPV 9.2 fL (8.0-11.0); Monocytes % 16.7; Nucleated RBC 0.6 % (0.0-0.3); Platelet Count 202 10^3/uL (130-400); RBC 1.49 10^6/uL (4.36-5.78); RDW 11.6 % (11.8-14.1); WBC 6.34 10^3/uL (4.4-10.8)
[2022-02-26 09:08] LABS: ALT 21 U/L (16-63); AST 17 U/L (15-37); Alkaline Phosphatase 103 U/L (46-116); Anion Gap 9.1 mmol/L (3-11); BUN 8 mg/dL (7-18); Bilirubin, Total 0.2 mg/dL (0.2-1.0); CO2 24.9 mmol/L (21.0-32.0); CREATININE 1.4 mg/dL (0.70-1.30); Calcium 8.3 mg/dL (8.5-10.1); Chloride 103 mmol/L (98-107); Estimated GFR 51.52 (mL/min/1.73m2); Glucose 104 mg/dL (74-106); Magnesium 1.4 mg/dL (1.8-2.4); Potassium 5.1 mmol/L (3.5-5.1); Sodium 137 mmol/L (136-145); Total Protein 6.8 g/dL (6.4-8.2)
[2022-02-26 09:50] LABS: HCT 15.8 % (40.0-50.0); HGB 5.6 g/dL (13.5-17.5)
[2022-02-26 09:51] LABS: Macrocytosis 1+
[2022-03-05] MEDS: Normal Saline Flush 10 ML SYR IVP (09:23)
[2022-03-05 09:34] LABS: HCT 27.9 % (40.0-50.0); HGB 10.1 g/dL (13.5-17.5); MCH 35.3 pg (27.0-33.0); MCHC 36.2 % (32.0-36.0); MCV 98 fL (80-95); MPV 8.8 fL (8.0-11.0); RBC 2.86 10^6/uL (4.36-5.78); RDW 17.2 % (11.8-14.1); RDW-SD 55.1 fL; WBC 10.74 10^3/uL (4.4-10.8)
[2022-03-05 09:50] LABS: ALT 30 U/L (16-63); AST 22 U/L (15-37); Albumin 3.3 g/dL (3.4-5.0); Alkaline Phosphatase 117 U/L (46-116); Anion Gap 10.7 mmol/L (3-11); BUN 16 mg/dL (7-18); Bilirubin, Total 0.2 mg/dL (0.2-1.0); CO2 23.3 mmol/L (21.0-32.0); CREATININE 1.7 mg/dL (0.70-1.30); Chloride 99 mmol/L (98-107); Estimated GFR 41.18 (mL/min/1.73m2); Glucose 116 mg/dL (74-106); Magnesium 1.7 mg/dL (1.8-2.4); Potassium 4.5 mmol/L (3.5-5.1); Sodium 133 mmol/L (136-145); Total Protein 7.3 g/dL (6.4-8.2)
[2022-03-05 10:12] LABS: Platelet Count 467 10^3/uL (130-400)
[2022-03-05 10:13] LABS: Absolute Lymphocyte Count 2.15 10^3/uL (1.2-3.4); Absolute Monocyte Count 1.29 10^3/uL (0.1-0.8); Bands % 2; Diff Comment Manual Differential; RBC Morphology Normal
[2022-03-12] MEDS: Normal Saline Flush 10 ML SYR IVP (07:17)
[2022-03-12] MEDS: Heparin 500 UNITS/5 ML SYRINGE IV (07:18)
[2022-03-12 07:46] LABS: Abs Immature Grans 0.31 10^3/uL (0.0-0.06); Absolute Basophil Count 0.06 10^3/uL (0.0-0.2); Absolute Eosinophil Count 0.04 10^3/uL (0.0-0.7); Absolute Lymphocyte Count 0.64 10^3/uL (1.2-3.4); Absolute Monocyte Count 0.03 10^3/uL (0.1-0.8); Absolute Neutrophil Count 4.11 10^3/uL (1.2-6.7); Basophils % 1.2; Eosinophils % 0.8; HCT 22.9 % (40.0-50.0); HGB 7.9 g/dL (13.5-17.5); Lymphocytes % 12.3; MCH 34.3 pg (27.0-33.0); MCHC 34.5 % (32.0-36.0); MCV 100 fL (80-95); MPV 9.8 fL (8.0-11.0); Monocytes % 0.6; Neutrophils % 79.1; Platelet Count 208 10^3/uL (130-400); RDW 16.5 % (11.8-14.1); RDW-SD 58.7 fL; WBC 5.19 10^3/uL (4.4-10.8)
[2022-03-12 08:02] LABS: ALT 28 U/L (16-63); AST 17 U/L (15-37); Albumin 2.9 g/dL (3.4-5.0); Alkaline Phosphatase 101 U/L (46-116); Anion Gap 4.4 mmol/L (3-11); BUN 20 mg/dL (7-18); Bilirubin, Total 0.3 mg/dL (0.2-1.0); CO2 28.6 mmol/L (21.0-32.0); CREATININE 1.1 mg/dL (0.70-1.30); Calcium 8.3 mg/dL (8.5-10.1); Chloride 101 mmol/L (98-107); Glucose 112 mg/dL (74-106); Magnesium 1.5 mg/dL (1.8-2.4); Potassium 4.5 mmol/L (3.5-5.1); Sodium 134 mmol/L (136-145); Total Protein 6.3 g/dL (6.4-8.2)
[2022-03-12 08:30] LABS: Diff Comment Diff Reviewed; Hypochromasia 2+
[2022-03-14 08:48] VITALS: BP 156/88; PULSE 90; RESP 18; TEMP 36.8; O2SAT 100
[2022-03-14] MEDS: Normal Saline Flush 10 ML SYR IVP (08:54)
[2022-03-14] MEDS: Heparin 500 UNITS/5 ML SYRINGE IV (08:54)
[2022-03-14 09:03] VITALS: BP 152/85; PULSE 94; RESP 18; TEMP 36.9; O2SAT 100
[2022-03-14 09:20] VITALS: BP 147/88; PULSE 91; RESP 17; TEMP 36.8; O2SAT 100
[2022-03-14 09:50] VITALS: BP 154/78; PULSE 94; RESP 17; TEMP 36.4; O2SAT 100
[2022-03-14 10:34] VITALS: BP 162/91; PULSE 90; RESP 17; TEMP 36.5; O2SAT 100
== END 2022-03-14 23:59 | disposition home or self-care (01) ==
LOC: INF 02:19
PROVIDERS: PCP Internal Medicine; Visit Provider Internal Medicine Medical Oncology
DX: Z45.2 Encounter for adjustment and management of vascular access device (principal); C34.11 Malignant neoplasm of upper lobe, right bronchus or lung; D64.81 Anemia due to antineoplastic chemotherapy; T45.1X5A Adverse effect of antineoplastic and immunosuppressive drugs, initial encounter
CPT/HCPCS: 36430; 36591; 80053; 86850; 86900; 86901; 86920; 83735; 85025; P9016

== ENCOUNTER 2022-04-09 02:27 | Outpatient (RCR) | payer OTHER, SELFPAY ==
[2022-03-15 00:02] VITALS: BP 162/91; PULSE 90; RESP 17; TEMP 36.5
[2022-03-20] VITALS (7 sets, daily range): BP systolic 119–150; BP diastolic 67–81; PULSE 91–101; RESP 16–18; TEMP 36.4–37.1; O2SAT 98–100
[2022-03-20] MEDS: Normal Saline Flush 10 ML SYR IVP ×2 (07:12→14:13)
[2022-03-20] MEDS: Heparin 500 UNITS/5 ML SYRINGE IV (07:13)
[2022-03-20 07:29] LABS: HGB 7.7 g/dL (13.5-17.5); MCH 32.9 pg (27.0-33.0); MCV 94 fL (80-95); MPV 10.2 fL (8.0-11.0); RBC 2.34 10^6/uL (4.36-5.78); RDW 15.9 % (11.8-14.1); RDW-SD 53.6 fL
[2022-03-20 07:53] LABS: Absolute Eosinophil Count 0.02 10^3/uL (0.0-0.7); Absolute Monocyte Count 0.24 10^3/uL (0.1-0.8); Diff Comment Manual Differential; RBC Morphology Normal
[2022-03-20 08:10] LABS: Absolute Neutrophil Count 0.03 10^3/uL (1.2-6.7); Platelet Count 12 10^3/uL (130-400)
[2022-03-20 14:57] LABS: HGB 7.9 g/dL (13.5-17.5); MCH 31.7 pg (27.0-33.0); MCHC 35.9 % (32.0-36.0); MCV 88 fL (80-95); RBC 2.49 10^6/uL (4.36-5.78); RDW 18.5 % (11.8-14.1); RDW-SD 58.4 fL
[2022-03-20 15:02] LABS: Platelet Count 23 10^3/uL (130-400); WBC 0.72 10^3/uL (4.4-10.8)
[2022-03-22] MEDS: Normal Saline Flush 10 ML SYR IVP (07:51)
[2022-03-22 08:11] LABS: HGB 8.8 g/dL (13.5-17.5); MCH 31.2 pg (27.0-33.0); MCHC 35.2 % (32.0-36.0); MCV 89 fL (80-95); RBC 2.82 10^6/uL (4.36-5.78); RDW 18.1 % (11.8-14.1); RDW-SD 58.3 fL
[2022-03-22 08:29] LABS: Absolute Eosinophil Count 0.08 10^3/uL (0.0-0.7); Absolute Lymphocyte Count 0.68 10^3/uL (1.2-3.4); Absolute Monocyte Count 0.34 10^3/uL (0.1-0.8); Bands % 1; Metamyelocytes % 1; Other Cells % 5
[2022-03-22 08:30] LABS: Diff Comment Manual Differential; Platelet Count 34 10^3/uL (130-400); RBC Morphology Normal
[2022-03-22 08:36] LABS: Absolute Neutrophil Count 0.42 10^3/uL (1.2-6.7); WBC 1.61 10^3/uL (4.4-10.8)
[2022-03-26] MEDS: Normal Saline Flush 10 ML SYR IVP (07:10)
[2022-03-26 07:37] LABS: Abs Immature Grans 0.09 10^3/uL (0.0-0.06); Absolute Basophil Count 0.01 10^3/uL (0.0-0.2); Absolute Eosinophil Count 0.01 10^3/uL (0.0-0.7); Absolute Lymphocyte Count 0.94 10^3/uL (1.2-3.4); Absolute Monocyte Count 0.76 10^3/uL (0.1-0.8); Absolute Neutrophil Count 2.89 10^3/uL (1.2-6.7); Basophils % 0.2; Eosinophils % 0.2; HCT 24.8 % (40.0-50.0); HGB 8.7 g/dL (13.5-17.5); Immature Grans % 1.9; MCH 31.3 pg (27.0-33.0); MCHC 35.1 % (32.0-36.0); MCV 89 fL (80-95); MPV 9.2 fL (8.0-11.0); Monocytes % 16.2; Neutrophils % 61.5; RBC 2.78 10^6/uL (4.36-5.78); RDW 17.5 % (11.8-14.1); RDW-SD 55.7 fL
[2022-03-26 07:55] LABS: ALT 20 U/L (16-63); AST 17 U/L (15-37); Albumin 3.2 g/dL (3.4-5.0); Alkaline Phosphatase 113 U/L (46-116); Anion Gap 11.5 mmol/L (3-11); BUN 9 mg/dL (7-18); Bilirubin, Total 0.3 mg/dL (0.2-1.0); CO2 25.5 mmol/L (21.0-32.0); CREATININE 1.6 mg/dL (0.70-1.30); Calcium 8.3 mg/dL (8.5-10.1); Chloride 101 mmol/L (98-107); Estimated GFR 48.72 (mL/min/1.73m2); Glucose 108 mg/dL (74-106); Sodium 138 mmol/L (136-145); Total Protein 6.9 g/dL (6.4-8.2)
[2022-03-26 08:01] LABS: Platelet Count 55 10^3/uL (130-400)
[2022-03-26 08:18] LABS: Magnesium 1.4 mg/dL (1.8-2.4)
[2022-04-02 08:03] LABS: Abs Immature Grans 0.04 10^3/uL (0.0-0.06); Absolute Basophil Count 0.03 10^3/uL (0.0-0.2); Absolute Eosinophil Count 0.02 10^3/uL (0.0-0.7); Absolute Monocyte Count 0.78 10^3/uL (0.1-0.8); Absolute Neutrophil Count 5.02 10^3/uL (1.2-6.7); Basophils % 0.4; Eosinophils % 0.3; HCT 25.6 % (40.0-50.0); HGB 8.9 g/dL (13.5-17.5); Immature Grans % 0.6; Lymphocytes % 13.3; MCH 31.6 pg (27.0-33.0); MCHC 34.8 % (32.0-36.0); MCV 91 fL (80-95); MPV 9.3 fL (8.0-11.0); Monocytes % 11.5; Neutrophils % 73.9; Platelet Count 119 10^3/uL (130-400); RBC 2.82 10^6/uL (4.36-5.78); RDW 18.6 % (11.8-14.1); RDW-SD 56.3 fL; WBC 6.79 10^3/uL (4.4-10.8)
[2022-04-02] MEDS: Normal Saline Flush 10 ML SYR IVP (08:03)
[2022-04-02 08:21] LABS: ALT 25 U/L (16-63); AST 23 U/L (15-37); Albumin 3.3 g/dL (3.4-5.0); Alkaline Phosphatase 127 U/L (46-116); Anion Gap 11.2 mmol/L (3-11); BUN 13 mg/dL (7-18); Bilirubin, Total 0.3 mg/dL (0.2-1.0); CO2 26.8 mmol/L (21.0-32.0); Calcium 8.9 mg/dL (8.5-10.1); Chloride 98 mmol/L (98-107); Estimated GFR 37.27 (mL/min/1.73m2); Glucose 118 mg/dL (74-106); Magnesium 1.4 mg/dL (1.8-2.4); Potassium 3.9 mmol/L (3.5-5.1); Sodium 136 mmol/L (136-145)
[2022-04-09] VITALS (9 sets, daily range): BP systolic 111–151; BP diastolic 61–84; PULSE 81–95; RESP 17–18; TEMP 36.3–36.8; O2SAT 99–100
[2022-04-09] MEDS: Normal Saline Flush 10 ML SYR IVP ×2 (07:03→09:42)
[2022-04-09] MEDS: Heparin 500 UNITS/5 ML SYRINGE IV (07:04)
[2022-04-09 07:11] LABS: MCH 31.3 pg (27.0-33.0); MCHC 34.3 % (32.0-36.0); MCV 91 fL (80-95); MPV 9.8 fL (8.0-11.0); RBC 2.17 10^6/uL (4.36-5.78); RDW 19.5 % (11.8-14.1); RDW-SD 61.1 fL; WBC 4.23 10^3/uL (4.4-10.8)
[2022-04-09 07:39] LABS: Absolute Lymphocyte Count 0.76 10^3/uL (1.2-3.4); Absolute Monocyte Count 0.04 10^3/uL (0.1-0.8); Absolute Neutrophil Count 3.43 10^3/uL (1.2-6.7); Platelet Count 56 10^3/uL (130-400)
[2022-04-09 07:40] LABS: Diff Comment Manual Differential; RBC Morphology Normal
[2022-04-09 08:14] LABS: HCT 19.8 % (40.0-50.0); HGB 6.8 g/dL (13.5-17.5)
== END 2022-04-13 23:59 | disposition home or self-care (01) ==
LOC: INF 02:27
PROVIDERS: PCP Internal Medicine; Visit Provider Internal Medicine Medical Oncology
DX: Z45.2 Encounter for adjustment and management of vascular access device (principal); C34.11 Malignant neoplasm of upper lobe, right bronchus or lung
CPT/HCPCS: 36430; 36591; 80053; 85027; 86850; 86900; 86901; 86920; 83735; 85025; P9016; P9035

== ENCOUNTER 2022-05-14 09:00 | Outpatient (RCR) | payer OTHER, SELFPAY ==
[2022-04-14 00:16] VITALS: BP 151/78; PULSE 89; RESP 17; TEMP 36.8
[2022-04-16] MEDS: Normal Saline Flush 10 ML SYR IVP ×2 (07:22→11:42)
[2022-04-16 07:40] LABS: HCT 23.7 % (40.0-50.0); HGB 8.3 g/dL (13.5-17.5); MCH 31.1 pg (27.0-33.0); MCV 89 fL (80-95); MPV 10.7 fL (8.0-11.0); RBC 2.67 10^6/uL (4.36-5.78); RDW 15.4 % (11.8-14.1); RDW-SD 47.8 fL
[2022-04-16 08:02] LABS: Absolute Lymphocyte Count 0.36 10^3/uL (1.2-3.4)
[2022-04-16 08:03] LABS: Absolute Monocyte Count 0.05 10^3/uL (0.1-0.8); Diff Comment Manual Differential; RBC Morphology Normal
[2022-04-16 08:15] LABS: Absolute Neutrophil Count 0.02 10^3/uL (1.2-6.7); Platelet Count 2 10^3/uL (130-400); WBC 0.43 10^3/uL (4.4-10.8)
[2022-04-16 11:36] VITALS: BP 142/79; PULSE 101; RESP 18; TEMP 37; O2SAT 100
[2022-04-16 11:50] VITALS: BP 135/83; PULSE 97; RESP 17; TEMP 36.7; O2SAT 98
[2022-04-16 12:05] VITALS: BP 132/81; PULSE 87; RESP 17; TEMP 36.8; O2SAT 100
[2022-04-16 12:35] VITALS: BP 139/81; PULSE 93; RESP 17; TEMP 36.7; O2SAT 100
[2022-04-16 13:35] VITALS: BP 153/79; PULSE 97; RESP 17; TEMP 36.1; O2SAT 100
[2022-04-16 14:00] VITALS: BP 157/90; PULSE 97; RESP 17; TEMP 36.5; O2SAT 98
[2022-04-19] MEDS: Normal Saline Flush 10 ML SYR IVP ×2 (07:10→13:24)
[2022-04-19 07:16] LABS: Abs Immature Grans 0.01 10^3/uL (0.0-0.06); MCV 86 fL (80-95)
[2022-04-19 07:40] LABS: Absolute Monocyte Count 0.07 10^3/uL (0.1-0.8); Atypical Lymphocytes % 2
[2022-04-19 07:42] LABS: Diff Comment Manual Differential; Metamyelocytes % 3; Myelocytes % 2; RBC Morphology Normal
[2022-04-19 07:57] LABS: Absolute Lymphocyte Count 0.55 10^3/uL (1.2-3.4); Absolute Neutrophil Count 0.75 10^3/uL (1.2-6.7); HCT 25.5 % (40.0-50.0); MCH 30.5 pg (27.0-33.0); MCHC 35.3 % (32.0-36.0); RBC 2.95 10^6/uL (4.36-5.78); RDW 14.7 % (11.8-14.1); RDW-SD 44.6 fL
[2022-04-19 07:58] LABS: MPV 8.8 fL (8.0-11.0)
[2022-04-19 08:12] LABS: Platelet Count 6 10^3/uL (130-400); WBC 1.44 10^3/uL (4.4-10.8)
[2022-04-19] MEDS: diphenhydrAMINE 25 MG CAP PO (13:24)
[2022-04-19] MEDS: Acetaminophen 325 MG TAB 650 MG PO (13:24)
[2022-04-19 13:39] VITALS: BP 166/75; PULSE 118; RESP 17; TEMP 36.8; O2SAT 98
[2022-04-19 14:05] VITALS: BP 119/75; PULSE 105; RESP 17; TEMP 36.5; O2SAT 98
[2022-04-19 15:03] LABS: HCT 22.4 % (40.0-50.0); HGB 7.9 g/dL (13.5-17.5); MCH 30.4 pg (27.0-33.0); MCHC 35.3 % (32.0-36.0); MCV 86 fL (80-95); RDW 14.6 % (11.8-14.1); RDW-SD 43.7 fL
[2022-04-19 15:14] LABS: WBC 1.39 10^3/uL (4.4-10.8)
[2022-04-19 15:15] LABS: Platelet Count 12 10^3/uL (130-400)
[2022-04-20] MEDS: Normal Saline Flush 10 ML SYR IVP (11:39)
[2022-04-20] MEDS: diphenhydrAMINE 25 MG CAP PO (12:19)
[2022-04-20] MEDS: Acetaminophen 325 MG TAB 650 MG PO (12:19)
[2022-04-20 12:22] VITALS: BP 160/86; PULSE 106; RESP 18; TEMP 36.6; O2SAT 98
[2022-04-20 12:35] VITALS: BP 135/83; PULSE 98; RESP 17; TEMP 36.4; O2SAT 100
[2022-04-20 12:50] VITALS: BP 152/88; PULSE 98; RESP 16; TEMP 36.4; O2SAT 99
[2022-04-20 13:20] VITALS: BP 155/86; PULSE 94; RESP 16; TEMP 36.4; O2SAT 100
[2022-04-20 14:17] VITALS: BP 164/98; PULSE 97; RESP 16; TEMP 36.6; O2SAT 100
[2022-04-20 14:50] VITALS: BP 156/87; PULSE 102; RESP 16; TEMP 36.6; O2SAT 99
[2022-04-23] MEDS: Normal Saline Flush 10 ML SYR IVP (08:11)
[2022-04-23 08:15] LABS: Abs Immature Grans 0.01 10^3/uL (0.0-0.06); Absolute Basophil Count 0.01 10^3/uL (0.0-0.2); Absolute Eosinophil Count 0.01 10^3/uL (0.0-0.7); Absolute Neutrophil Count 1.98 10^3/uL (1.2-6.7); Basophils % 0.3; Eosinophils % 0.3; HCT 29.1 % (40.0-50.0); HGB 10.2 g/dL (13.5-17.5); Immature Grans % 0.3; Lymphocytes % 22.5; MCH 30.1 pg (27.0-33.0); MCHC 35.1 % (32.0-36.0); MCV 86 fL (80-95); MPV 9.7 fL (8.0-11.0); Monocytes % 12.9; Neutrophils % 63.7; RBC 3.39 10^6/uL (4.36-5.78); RDW 14.2 % (11.8-14.1); RDW-SD 42.9 fL; WBC 3.11 10^3/uL (4.4-10.8)
[2022-04-23 08:26] LABS: Platelet Count 23 10^3/uL (130-400)
[2022-04-23 08:41] LABS: ALT 45 U/L (16-63); AST 37 U/L (15-37); Albumin 3.4 g/dL (3.4-5.0); Alkaline Phosphatase 87 U/L (46-116); Anion Gap 11.4 mmol/L (3-11); BUN 8 mg/dL (7-18); Bilirubin, Total 0.4 mg/dL (0.2-1.0); CO2 26.6 mmol/L (21.0-32.0); CREATININE 1.3 mg/dL (0.70-1.30); Calcium 8.3 mg/dL (8.5-10.1); Chloride 104 mmol/L (98-107); Glucose 108 mg/dL (74-106); Magnesium 1.1 mg/dL (1.8-2.4); Potassium 3.9 mmol/L (3.5-5.1); Sodium 142 mmol/L (136-145); Total Protein 7.2 g/dL (6.4-8.2)
[2022-04-30] MEDS: Normal Saline Flush 10 ML SYR IVP (10:01)
[2022-04-30 10:14] LABS: Abs Immature Grans 0.02 10^3/uL (0.0-0.06); Absolute Basophil Count 0.01 10^3/uL (0.0-0.2); Absolute Eosinophil Count 0.01 10^3/uL (0.0-0.7); Absolute Lymphocyte Count 0.77 10^3/uL (1.2-3.4); Absolute Monocyte Count 0.67 10^3/uL (0.1-0.8); Absolute Neutrophil Count 2.87 10^3/uL (1.2-6.7); Basophils % 0.2; Eosinophils % 0.2; HCT 27.4 % (40.0-50.0); HGB 9.6 g/dL (13.5-17.5); Immature Grans % 0.5; Lymphocytes % 17.7; MCH 29.7 pg (27.0-33.0); MCV 85 fL (80-95); MPV 9.4 fL (8.0-11.0); Monocytes % 15.4; RBC 3.23 10^6/uL (4.36-5.78); RDW 13.7 % (11.8-14.1); RDW-SD 40.8 fL; WBC 4.35 10^3/uL (4.4-10.8)
[2022-04-30 10:30] LABS: ALT 43 U/L (16-63); AST 40 U/L (15-37); Albumin 3.4 g/dL (3.4-5.0); Alkaline Phosphatase 99 U/L (46-116); Anion Gap 11.9 mmol/L (3-11); BUN 14 mg/dL (7-18); Bilirubin, Total 0.5 mg/dL (0.2-1.0); CO2 28.1 mmol/L (21.0-32.0); CREATININE 1.8 mg/dL (0.70-1.30); Calcium 8.6 mg/dL (8.5-10.1); Chloride 98 mmol/L (98-107); Glucose 119 mg/dL (74-106); Magnesium 1.1 mg/dL (1.8-2.4); Potassium 3.8 mmol/L (3.5-5.1); Sodium 138 mmol/L (136-145); Total Protein 7.1 g/dL (6.4-8.2)
[2022-04-30 10:33] LABS: Platelet Count 30 10^3/uL (130-400)
[2022-05-07] MEDS: Normal Saline Flush 10 ML SYR IVP (12:13)
[2022-05-07 12:18] LABS: Abs Immature Grans 0.02 10^3/uL (0.0-0.06); Absolute Basophil Count 0.02 10^3/uL (0.0-0.2); Absolute Eosinophil Count 0.04 10^3/uL (0.0-0.7); Absolute Lymphocyte Count 0.95 10^3/uL (1.2-3.4); Absolute Neutrophil Count 3.53 10^3/uL (1.2-6.7); Basophils % 0.4; Eosinophils % 0.8; HCT 24.7 % (40.0-50.0); HGB 8.7 g/dL (13.5-17.5); Immature Grans % 0.4; Lymphocytes % 18.1; MCHC 35.2 % (32.0-36.0); MCV 85 fL (80-95); MPV 9.9 fL (8.0-11.0); Monocytes % 13.3; RDW 14.1 % (11.8-14.1); RDW-SD 41.2 fL; WBC 5.26 10^3/uL (4.4-10.8)
[2022-05-07 12:35] LABS: Diff Comment Diff Reviewed; Platelet Count 58 10^3/uL (130-400); RBC Morphology Normal
[2022-05-07 12:39] LABS: ALT 59 U/L (16-63); AST 61 U/L (15-37); Albumin 3.4 g/dL (3.4-5.0); Alkaline Phosphatase 100 U/L (46-116); Anion Gap 9.1 mmol/L (3-11); BUN 16 mg/dL (7-18); Bilirubin, Total 0.5 mg/dL (0.2-1.0); CO2 29.9 mmol/L (21.0-32.0); CREATININE 2.2 mg/dL (0.70-1.30); Calcium 8.6 mg/dL (8.5-10.1); Chloride 98 mmol/L (98-107); Estimated GFR 33.24 (mL/min/1.73m2); Glucose 101 mg/dL (74-106); Magnesium 1.3 mg/dL (1.8-2.4); Potassium 3.7 mmol/L (3.5-5.1); Sodium 137 mmol/L (136-145); Total Protein 6.9 g/dL (6.4-8.2)
[2022-05-14] MEDS: Normal Saline Flush 10 ML SYR IVP ×2 (08:09→08:55)
[2022-05-14 08:18] LABS: Abs Immature Grans 0.03 10^3/uL (0.0-0.06); Absolute Basophil Count 0.01 10^3/uL (0.0-0.2); Absolute Eosinophil Count 0.12 10^3/uL (0.0-0.7); Absolute Lymphocyte Count 0.89 10^3/uL (1.2-3.4); Absolute Monocyte Count 0.67 10^3/uL (0.1-0.8); Absolute Neutrophil Count 4.89 10^3/uL (1.2-6.7); Basophils % 0.2; Eosinophils % 1.8; HCT 23.8 % (40.0-50.0); HGB 8.2 g/dL (13.5-17.5); Immature Grans % 0.5; Lymphocytes % 13.5; MCHC 34.5 % (32.0-36.0); MCV 87 fL (80-95); MPV 9.5 fL (8.0-11.0); Monocytes % 10.1; Neutrophils % 73.9; Nucleated RBC 0.3 % (0.0-0.3); RBC 2.73 10^6/uL (4.36-5.78); RDW 15.7 % (11.8-14.1); RDW-SD 42.7 fL; WBC 6.61 10^3/uL (4.4-10.8)
[2022-05-14 08:38] LABS: Platelet Count 70 10^3/uL (130-400)
[2022-05-14] MEDS: diphenhydrAMINE 25 MG CAP PO (08:55)
[2022-05-14] MEDS: Heparin 500 UNITS/5 ML SYRINGE IVP (08:55)
[2022-05-14] MEDS: Acetaminophen 325 MG TAB 650 MG PO (08:55)
[2022-05-14 09:44] VITALS: BP 152/80; PULSE 101; RESP 18; TEMP 37.2; O2SAT 99
[2022-05-14 10:00] VITALS: BP 135/80; PULSE 87; RESP 17; TEMP 36.6; O2SAT 99
[2022-05-14 10:15] VITALS: BP 145/84; PULSE 86; RESP 17; TEMP 36.6; O2SAT 100
[2022-05-14 10:45] VITALS: BP 135/83; PULSE 83; RESP 17; TEMP 36.6; O2SAT 100
[2022-05-14 11:30] VITALS: BP 147/103; PULSE 88; RESP 17; TEMP 36.6; O2SAT 100
== END 2022-05-14 23:59 | disposition home or self-care (01) ==
LOC: INF 09:00
PROVIDERS: PCP Internal Medicine; Visit Provider Internal Medicine Medical Oncology
DX: C34.11 Malignant neoplasm of upper lobe, right bronchus or lung (principal); D64.81 Anemia due to antineoplastic chemotherapy; T45.1X5A Adverse effect of antineoplastic and immunosuppressive drugs, initial encounter; Z45.2 Encounter for adjustment and management of vascular access device
CPT/HCPCS: 36430; 36591; 80053; 85027; 86850; 86900; 86901; 86920; 83735; 85025; P9016; P9035

== ENCOUNTER 2022-06-11 02:39 | Outpatient (RCR) | payer OTHER, SELFPAY ==
[2022-05-15 00:07] VITALS: BP 147/103; PULSE 88; RESP 17; TEMP 36.6
[2022-06-04] MEDS: Normal Saline Flush 10 ML SYR IVP (08:04)
[2022-06-04 08:16] LABS: Abs Immature Grans 0.04 10^3/uL (0.0-0.06); Absolute Basophil Count 0.03 10^3/uL (0.0-0.2); Absolute Eosinophil Count 0.28 10^3/uL (0.0-0.7); Absolute Lymphocyte Count 0.63 10^3/uL (1.2-3.4); Absolute Monocyte Count 0.66 10^3/uL (0.1-0.8); Basophils % 0.4; Eosinophils % 3.6; HCT 22.8 % (40.0-50.0); HGB 7.9 g/dL (13.5-17.5); Immature Grans % 0.5; Lymphocytes % 8.1; MCH 29.6 pg (27.0-33.0); MCHC 34.6 % (32.0-36.0); MCV 85 fL (80-95); MPV 9.8 fL (8.0-11.0); Monocytes % 8.5; Neutrophils % 78.9; Platelet Count 100 10^3/uL (130-400); RBC 2.67 10^6/uL (4.36-5.78); RDW 15.9 % (11.8-14.1); RDW-SD 44.8 fL; WBC 7.74 10^3/uL (4.4-10.8)
[2022-06-04 08:33] LABS: ALT 43 U/L (16-63); AST 51 U/L (15-37); Albumin 2.9 g/dL (3.4-5.0); Alkaline Phosphatase 131 U/L (46-116); Anion Gap 8.3 mmol/L (3-11); BUN 5 mg/dL (7-18); Bilirubin, Total 0.5 mg/dL (0.2-1.0); CO2 29.7 mmol/L (21.0-32.0); CREATININE 1.3 mg/dL (0.70-1.30); Calcium 8.3 mg/dL (8.5-10.1); Chloride 102 mmol/L (98-107); Glucose 130 mg/dL (74-106); Magnesium 1.2 mg/dL (1.8-2.4); Potassium 3.4 mmol/L (3.5-5.1); Sodium 140 mmol/L (136-145); Total Protein 6.3 g/dL (6.4-8.2)
[2022-06-04] MEDS: diphenhydrAMINE 25 MG CAP PO (09:21)
[2022-06-04] MEDS: Acetaminophen 325 MG TAB 650 MG PO (09:21)
[2022-06-04 09:40] VITALS: BP 137/80; PULSE 96; RESP 16; TEMP 36.7; O2SAT 100
[2022-06-04 09:55] VITALS: BP 126/78; PULSE 93; RESP 17; TEMP 36.8; O2SAT 100
[2022-06-04 10:15] VITALS: BP 126/78; PULSE 91; RESP 17; TEMP 36.6; O2SAT 99
[2022-06-04 10:45] VITALS: BP 146/83; PULSE 90; RESP 16; TEMP 36.6; O2SAT 100
[2022-06-04 11:30] VITALS: BP 135/78; PULSE 83; RESP 16; TEMP 36.8; O2SAT 99
[2022-06-04] MEDS: Heparin 500 UNITS/5 ML SYRINGE (11:51)
[2022-06-11] MEDS: Normal Saline Flush 10 ML SYR IVP (08:08)
[2022-06-11] MEDS: Heparin 500 UNITS/5 ML SYRINGE IVP (08:09)
[2022-06-11 08:24] LABS: Abs Immature Grans 0.03 10^3/uL (0.0-0.06); Absolute Basophil Count 0.02 10^3/uL (0.0-0.2); Absolute Eosinophil Count 0.28 10^3/uL (0.0-0.7); Absolute Lymphocyte Count 0.81 10^3/uL (1.2-3.4); Absolute Monocyte Count 0.64 10^3/uL (0.1-0.8); Absolute Neutrophil Count 6.78 10^3/uL (1.2-6.7); Basophils % 0.2; Eosinophils % 3.3; HCT 27.1 % (40.0-50.0); HGB 9.1 g/dL (13.5-17.5); Immature Grans % 0.4; Lymphocytes % 9.5; MCH 29.5 pg (27.0-33.0); MCHC 33.6 % (32.0-36.0); MCV 88 fL (80-95); MPV 9.9 fL (8.0-11.0); Monocytes % 7.5; Neutrophils % 79.1; RBC 3.08 10^6/uL (4.36-5.78); RDW 15.9 % (11.8-14.1); RDW-SD 43.5 fL; WBC 8.56 10^3/uL (4.4-10.8)
[2022-06-11 08:33] LABS: Platelet Count 96 10^3/uL (130-400)
[2022-06-11 08:36] LABS: ALT 34 U/L (16-63); AST 42 U/L (15-37); Albumin 3.2 g/dL (3.4-5.0); Alkaline Phosphatase 118 U/L (46-116); Anion Gap 7.6 mmol/L (3-11); BUN 11 mg/dL (7-18); Bilirubin, Total 0.8 mg/dL (0.2-1.0); CO2 32.4 mmol/L (21.0-32.0); CREATININE 1.4 mg/dL (0.70-1.30); Calcium 8.2 mg/dL (8.5-10.1); Chloride 99 mmol/L (98-107); Estimated GFR 57.18 (mL/min/1.73m2); Glucose 108 mg/dL (74-106); Magnesium 1.3 mg/dL (1.8-2.4); Potassium 3.5 mmol/L (3.5-5.1); Sodium 139 mmol/L (136-145); Total Protein 6.8 g/dL (6.4-8.2)
== END 2022-06-13 23:59 | disposition home or self-care (01) ==
LOC: INF 02:39
PROVIDERS: PCP Internal Medicine; Visit Provider Internal Medicine Medical Oncology
DX: Z45.2 Encounter for adjustment and management of vascular access device (principal); C34.11 Malignant neoplasm of upper lobe, right bronchus or lung; D64.81 Anemia due to antineoplastic chemotherapy; T45.1X5A Adverse effect of antineoplastic and immunosuppressive drugs, initial encounter
CPT/HCPCS: 36430; 36591; 80053; 86850; 86900; 86901; 86920; 83735; 85025; P9016

== ENCOUNTER 2022-11-05 01:13 | Outpatient (RCR) | payer OTHER, SELFPAY ==
[2022-10-29] MEDS: Normal Saline Flush 10 ML SYR IVP (13:25)
[2022-10-29 13:40] LABS: Abs Immature Grans 0.03 10^3/uL (0.0-0.06); Absolute Basophil Count 0.03 10^3/uL (0.0-0.2); Absolute Eosinophil Count 0.22 10^3/uL (0.0-0.7); Absolute Lymphocyte Count 0.77 10^3/uL (1.2-3.4); Absolute Monocyte Count 0.59 10^3/uL (0.1-0.8); Absolute Neutrophil Count 6.16 10^3/uL (1.2-6.7); Basophils % 0.4; Eosinophils % 2.8; HCT 30.1 % (40.0-50.0); HGB 10.5 g/dL (13.5-17.5); Immature Grans % 0.4; Lymphocytes % 9.9; MCH 38.9 pg (27.0-33.0); MCHC 34.9 % (32.0-36.0); MCV 112 fL (80-95); Monocytes % 7.6; Neutrophils % 78.9; Nucleated RBC 0.4 % (0.0-0.3); Platelet Count 117 10^3/uL (130-400); RDW 14.7 % (11.8-14.1); RDW-SD 58.4 fL
[2022-10-29 13:59] LABS: ALT 70 U/L (16-63); AST 95 U/L (15-37); Albumin 3.1 g/dL (3.4-5.0); Alkaline Phosphatase 141 U/L (46-116); Anion Gap 9.3 mmol/L (3-11); BUN 8 mg/dL (7-18); Bilirubin, Total 0.6 mg/dL (0.2-1.0); CO2 26.7 mmol/L (21.0-32.0); CREATININE 1.3 mg/dL (0.70-1.30); Calcium 8.9 mg/dL (8.5-10.1); Chloride 107 mmol/L (98-107); Estimated GFR 62.11 (mL/min/1.73m2); Glucose 108 mg/dL (74-106); Magnesium 1.4 mg/dL (1.8-2.4); Potassium 3.9 mmol/L (3.5-5.1); Sodium 143 mmol/L (136-145); Total Protein 6.6 g/dL (6.4-8.2)
[2022-11-05] MEDS: Normal Saline Flush 10 ML SYR IVP (11:42)
[2022-11-05] MEDS: Heparin 500 UNITS/5 ML SYRINGE IV (11:43)
[2022-11-05 11:51] LABS: Abs Immature Grans 0.06 10^3/uL (0.0-0.06); Absolute Basophil Count 0.02 10^3/uL (0.0-0.2); Absolute Eosinophil Count 0.12 10^3/uL (0.0-0.7); Absolute Lymphocyte Count 0.64 10^3/uL (1.2-3.4); Absolute Monocyte Count 0.06 10^3/uL (0.1-0.8); Absolute Neutrophil Count 2.73 10^3/uL (1.2-6.7); Basophils % 0.6; Eosinophils % 3.3; HCT 25.2 % (40.0-50.0); HGB 8.8 g/dL (13.5-17.5); Immature Grans % 1.7; Lymphocytes % 17.6; MCH 38.4 pg (27.0-33.0); MCHC 34.9 % (32.0-36.0); MCV 110 fL (80-95); MPV 9.9 fL (8.0-11.0); Monocytes % 1.7; Neutrophils % 75.1; RBC 2.29 10^6/uL (4.36-5.78); RDW 14.3 % (11.8-14.1); RDW-SD 53.7 fL; WBC 3.63 10^3/uL (4.4-10.8)
[2022-11-05 12:15] LABS: Macrocytosis 2+; Platelet Count 40 10^3/uL (130-400)
[2022-11-05 12:16] LABS: Stomatocytes 2+
== END 2022-11-11 23:59 | disposition home or self-care (01) ==
LOC: INF 01:13
PROVIDERS: Nurse Practitioner Family; PCP Internal Medicine; Visit Provider Internal Medicine Medical Oncology
DX: Z45.2 Encounter for adjustment and management of vascular access device (principal); C34.11 Malignant neoplasm of upper lobe, right bronchus or lung
CPT/HCPCS: 36415; 36591; 80053; 96523; 83735; 85025

== ENCOUNTER 2022-11-06 16:03 | Outpatient (REF) | payer OTHER, SELFPAY ==
[2022-11-06 13:27] LABS: Bilirubin Negative (Negative); Blood Negative (Negative); Clarity Clear (Clear); Glucose Negative (Negative); Ketones Negative (Negative); Leukocyte Esterase Negative (Negative); Nitrite Negative (Negative); Specific Gravity 1.015 (1.005-1.025); pH 6.5 (5-8)
[2022-11-06 14:07] LABS: Bacteria Rare HPF (Negative); C & S Indicated? No; Casts Negative LPF (Negative); Crystals Negative HPF (Negative); Epithelial Cells Rare HPF (Negative); Mucus Trace (Negative); RBC 0-2 HPF (0-2); WBC 0-2 HPF (0-5)
== END 2022-11-06 16:04 | disposition home or self-care (01) ==
LOC: LBN 16:03
PROVIDERS: PCP Internal Medicine; Visit Provider Internal Medicine Medical Oncology
DX: C78.7 Secondary malignant neoplasm of liver and intrahepatic bile duct (principal); C34.11 Malignant neoplasm of upper lobe, right bronchus or lung; R82.998 Other abnormal findings in urine
CPT/HCPCS: 81003; 81015

== ENCOUNTER 2022-12-03 01:43 | Outpatient (RCR) | payer OTHER, SELFPAY ==
[2022-11-12] VITALS (7 sets, daily range): BP systolic 129–154; BP diastolic 67–84; PULSE 78–81; RESP 16–18; TEMP 36.3–36.7; O2SAT 98–100
[2022-11-12] MEDS: Heparin 500 UNITS/5 ML SYRINGE (09:00)
[2022-11-12 10:44] LABS: Abs Immature Grans 0.02 10^3/uL (0.0-0.06); HGB 7.4 g/dL (13.5-17.5); MCH 37.9 pg (27.0-33.0); MCHC 35.4 % (32.0-36.0); MCV 107 fL (80-95); MPV 11.8 fL (8.0-11.0); RBC 1.95 10^6/uL (4.36-5.78); RDW 13.6 % (11.8-14.1); RDW-SD 51.4 fL
[2022-11-12 11:23] LABS: WBC 1.17 10^3/uL (4.4-10.8)
[2022-11-12 11:24] LABS: HCT 20.9 % (40.0-50.0)
[2022-11-12 11:25] LABS: Platelet Count 25 10^3/uL (130-400)
[2022-11-12 11:26] LABS: Absolute Lymphocyte Count 0.41 10^3/uL (1.2-3.4); Absolute Neutrophil Count 0.39 10^3/uL (1.2-6.7); Atypical Lymphocytes % 0; Metamyelocytes % 2; Myelocytes % 1
[2022-11-12 11:27] LABS: Diff Comment Manual Differential; Macrocytosis 1+; Other Cells % 3
[2022-11-12] MEDS: diphenhydrAMINE 25 MG CAP PO (11:36)
[2022-11-12] MEDS: Acetaminophen 325 MG TAB 650 MG PO (11:37)
[2022-11-12] MEDS: Normal Saline Flush 10 ML SYR IVP (11:37)
[2022-11-14] MEDS: Normal Saline Flush 10 ML SYR IVP (09:19)
[2022-11-14 09:22] LABS: Abs Immature Grans 0.01 10^3/uL (0.0-0.06); Absolute Basophil Count 0.02 10^3/uL (0.0-0.2); Absolute Eosinophil Count 0.02 10^3/uL (0.0-0.7); Absolute Lymphocyte Count 0.73 10^3/uL (1.2-3.4); Absolute Monocyte Count 0.97 10^3/uL (0.1-0.8); Absolute Neutrophil Count 1.53 10^3/uL (1.2-6.7); Basophils % 0.6; Eosinophils % 0.6; HCT 32.4 % (40.0-50.0); HGB 11.6 g/dL (13.5-17.5); Immature Grans % 0.3; Lymphocytes % 22.3; MCH 34.4 pg (27.0-33.0); MCHC 35.8 % (32.0-36.0); MCV 96 fL (80-95); MPV 10.9 fL (8.0-11.0); Monocytes % 29.6; Neutrophils % 46.6; RBC 3.37 10^6/uL (4.36-5.78); RDW 18.1 % (11.8-14.1); RDW-SD 63.9 fL; WBC 3.28 10^3/uL (4.4-10.8)
[2022-11-14 10:11] LABS: Platelet Count 35 10^3/uL (130-400); RBC Morphology Normal
[2022-11-14 10:12] LABS: Diff Comment Agrees w/ Instrument
[2022-11-19] MEDS: Normal Saline Flush 10 ML SYR IVP (08:46)
[2022-11-19 09:05] LABS: Abs Immature Grans 0.03 10^3/uL (0.0-0.06); Absolute Basophil Count 0.02 10^3/uL (0.0-0.2); Absolute Eosinophil Count 0.02 10^3/uL (0.0-0.7); Absolute Lymphocyte Count 0.55 10^3/uL (1.2-3.4); Absolute Monocyte Count 0.66 10^3/uL (0.1-0.8); Absolute Neutrophil Count 6.49 10^3/uL (1.2-6.7); Basophils % 0.3; Eosinophils % 0.3; HGB 10.1 g/dL (13.5-17.5); Immature Grans % 0.4; Lymphocytes % 7.1; MCH 34.4 pg (27.0-33.0); MCHC 36.1 % (32.0-36.0); MCV 95 fL (80-95); MPV 9.8 fL (8.0-11.0); Monocytes % 8.5; Neutrophils % 83.4; RBC 2.94 10^6/uL (4.36-5.78); RDW 17.3 % (11.8-14.1); RDW-SD 59.9 fL; WBC 7.77 10^3/uL (4.4-10.8)
[2022-11-19 09:32] LABS: ALT 37 U/L (16-63); AST 36 U/L (15-37); Alkaline Phosphatase 121 U/L (46-116); Anion Gap 10.3 mmol/L (3-11); BUN 9 mg/dL (7-18); Bilirubin, Total 0.7 mg/dL (0.2-1.0); CO2 25.7 mmol/L (21.0-32.0); CREATININE 1.1 mg/dL (0.70-1.30); Calcium 8.5 mg/dL (8.5-10.1); Chloride 102 mmol/L (98-107); Glucose 112 mg/dL (74-106); Magnesium 1.4 mg/dL (1.8-2.4); Potassium 3.2 mmol/L (3.5-5.1); Sodium 138 mmol/L (136-145); Total Protein 6.5 g/dL (6.4-8.2)
[2022-11-19 10:00] LABS: Platelet Count 59 10^3/uL (130-400)
[2022-11-26] MEDS: Normal Saline Flush 10 ML SYR IVP (12:10)
[2022-11-26 12:22] LABS: Abs Immature Grans 0.04 10^3/uL (0.0-0.06); Absolute Basophil Count 0.02 10^3/uL (0.0-0.2); Absolute Eosinophil Count 0.03 10^3/uL (0.0-0.7); Absolute Monocyte Count 0.72 10^3/uL (0.1-0.8); Absolute Neutrophil Count 4.65 10^3/uL (1.2-6.7); Basophils % 0.3; Eosinophils % 0.5; HGB 8.6 g/dL (13.5-17.5); Immature Grans % 0.6; Lymphocytes % 11.4; MCH 33.3 pg (27.0-33.0); MCHC 34.4 % (32.0-36.0); MCV 97 fL (80-95); MPV 9.6 fL (8.0-11.0); Monocytes % 11.7; Neutrophils % 75.5; Platelet Count 114 10^3/uL (130-400); RBC 2.58 10^6/uL (4.36-5.78); RDW 17.2 % (11.8-14.1); RDW-SD 60.6 fL; WBC 6.16 10^3/uL (4.4-10.8)
[2022-11-26 12:37] LABS: ALT 43 U/L (16-63); AST 44 U/L (15-37); Albumin 2.9 g/dL (3.4-5.0); Alkaline Phosphatase 142 U/L (46-116); Anion Gap 11.7 mmol/L (3-11); BUN 9 mg/dL (7-18); Bilirubin, Total 0.8 mg/dL (0.2-1.0); CO2 26.3 mmol/L (21.0-32.0); CREATININE 1.1 mg/dL (0.70-1.30); Calcium 9.4 mg/dL (8.5-10.1); Chloride 100 mmol/L (98-107); Glucose 96 mg/dL (74-106); Magnesium 1.7 mg/dL (1.8-2.4); Potassium 3.2 mmol/L (3.5-5.1); Sodium 138 mmol/L (136-145); Total Protein 7.1 g/dL (6.4-8.2)
[2022-12-03] MEDS: Normal Saline Flush 10 ML SYR IVP (07:59)
[2022-12-03 08:07] LABS: Abs Immature Grans 0.06 10^3/uL (0.0-0.06); Absolute Basophil Count 0.02 10^3/uL (0.0-0.2); Absolute Eosinophil Count 0.13 10^3/uL (0.0-0.7); Absolute Lymphocyte Count 0.75 10^3/uL (1.2-3.4); Absolute Monocyte Count 0.76 10^3/uL (0.1-0.8); Absolute Neutrophil Count 7.07 10^3/uL (1.2-6.7); Basophils % 0.2; Eosinophils % 1.5; HCT 24.2 % (40.0-50.0); HGB 8.3 g/dL (13.5-17.5); Immature Grans % 0.7; Lymphocytes % 8.5; MCH 33.3 pg (27.0-33.0); MCHC 34.3 % (32.0-36.0); MCV 97 fL (80-95); MPV 9.1 fL (8.0-11.0); Monocytes % 8.6; Neutrophils % 80.5; Platelet Count 151 10^3/uL (130-400); RBC 2.49 10^6/uL (4.36-5.78); RDW 17.2 % (11.8-14.1); RDW-SD 60.3 fL; WBC 8.79 10^3/uL (4.4-10.8)
[2022-12-03 08:25] LABS: ALT 38 U/L (16-63); AST 50 U/L (15-37); Alkaline Phosphatase 128 U/L (46-116); Anion Gap 16.3 mmol/L (3-11); BUN 12 mg/dL (7-18); Bilirubin, Total 0.8 mg/dL (0.2-1.0); CO2 23.7 mmol/L (21.0-32.0); CREATININE 1.4 mg/dL (0.70-1.30); Calcium 9.2 mg/dL (8.5-10.1); Chloride 101 mmol/L (98-107); Estimated GFR 56.83 (mL/min/1.73m2); Glucose 101 mg/dL (74-106); Magnesium 1.7 mg/dL (1.8-2.4); Potassium 3.2 mmol/L (3.5-5.1); Sodium 141 mmol/L (136-145); Total Protein 7.4 g/dL (6.4-8.2)
== END 2022-12-12 23:59 | disposition home or self-care (01) ==
LOC: INF 01:43
PROVIDERS: Nurse Practitioner Family; PCP Internal Medicine; Visit Provider Internal Medicine Medical Oncology
DX: C34.11 Malignant neoplasm of upper lobe, right bronchus or lung (principal); Z45.2 Encounter for adjustment and management of vascular access device
CPT/HCPCS: 36430; 36591; 80053; 86850; 86900; 86901; 86920; 83735; 85025; P9016